=== PATIENT | female | born 1950 | race African-American/Black ===

== ENCOUNTER → 2017-07-24 | Outpatient (CLI) | payer MEDICARE, MEDICAID ==
[~2017-07-24] MED LIST: ACETAMINOPHEN325 M2 PO; BACTRIM DS 8001 TA1 PO; CELEXA20 M1 PO; COGENTIN GENERIC1 MG PO; DETROL LA 2 MG C2 MG PO; IMODIUM 2MG. CAP2 MG PO; NORCO 325 MG-51 TAB PO; PANTOPRAZOLE SO40 MG PO; PHENERGAN25 M3 PO; PRENATAL PLUS1 TA1 PO; RISPERDAL 1 MG T1 MG PO; TRAZODONE 50MG50 MG PO; VITAMIN D1000 IU PO
--- NOTE | 2017-07-24 13:43 | RADIOLOGY REPORT PS360 ---
KNEE-3 VIEWS-RT COMPARISON: None HISTORY: ] Right knee pain TECHNIQUE: 4 views right knee FINDINGS: There is prominent joint space narrowing laterally with prominent spurring the lateral tibial plateau and spurring of the tibial spines. There is marked narrowing of patellofemoral space with prominent spurring of the superior border of the patella. There is no definite effusion. Is no fracture or loose body. There is mild spurring the medial femoral condyle. IMPRESSION: Prominent degenerative changes of the knee as noted
--- NOTE | 2017-07-24 15:41 | RADIOLOGY REPORT PS360 ---
CHEST(2 VIEWS-NOT PORTABLE) COMPARISON: HISTORY: Right knee pain TECHNIQUE: PA and lateral chest FINDINGS: This is a somewhat poor inspiration. There are increased bronchovascular markings and somewhat ill-defined opacities in the right lower lobe. The right upper lung field left lung field are clear. Is aortic tortuosity with borderline cardiomegaly but is no evidence of failure. IMPRESSION: Possible right lower lobe bronchopneumonia versus confluence of vascular shadows and I somewhat favor developing pneumonia and suggest clinical correlation.
== END ==
LOC: RAD 10:45
DX: M25.561 Pain in right knee (principal); R06.02 Shortness of breath

== ENCOUNTER → 2017-08-31 | Outpatient (CLI) | payer MEDICARE, MEDICAID ==
--- NOTE | 2017-08-31 13:03 | RADIOLOGY REPORT PS360 ---
CHEST(2 VIEWS-NOT PORTABLE) HISTORY: SHORTNESS OF BREATH ORDERING PHYSICIAN: DANNY HUTCHINS PATIENT AGE: 66 years COMPARISON: 07/24/2017 FINDINGS: The cardiomediastinal silhouette and pulmonary vascularity are within normal limits. Previously noted density in the right lung has improved. There is some residual increased markings in the right lung base probably related to vascular crowding. No definite lobar consolidation or collapse. No effusions or infiltrates. There is mild prominence of the descending thoracic aorta consistent with tortuosity and/or ectasia. No acute bony anomalies. IMPRESSION: Chronic changes with improvement in right basilar infiltrate
== END ==
LOC: RAD 08:57
DX: R06.02 Shortness of breath (principal)